=== PATIENT | female | born 1970 | race Caucasian/White ===

== ENCOUNTER → 2018-02-05 | Outpatient (CLI) | payer OTHER ==
--- NOTE | 2018-02-05 09:16 | DIAGNOSTIC IMAGING REPORT ---
(LIVER) ABDOMEN LIMITED CLINICAL HISTORY: R79.89 Elevated [id number] Elevated liver [id number] abnormal liver enzymes TECHNIQUE: Ultrasound COMPARISON STUDY: None FINDINGS: Liver is uniform in appearance. There are no space-occupying lesions. The intrahepatic biliary ductal system is unremarkable. Gallbladder is normal. No shadowing gallstones. Common bile duct 4 mm. Pancreas and right kidney are normal. IMPRESSION: Normal study The above report was generated using voice recognition software. It may contain grammatical, syntax or spelling errors. Electronically signed by: Remy Flores M.D. 02/05/2018 9:14 AM Dictated Date/Time: 02/05/2018 9:13 AM
== END | disposition home or self-care (01) ==
LOC: C.ULTR 08:34
PROVIDERS: ATTEND Nurse Practitioner Family
DX: R79.89 Other specified abnormal findings of blood chemistry (principal); R74.8 Abnormal levels of other serum enzymes